=== PATIENT | male | born 1940 | race Caucasian/White ===

== ENCOUNTER 2019-03-28 05:35 | Day surgery (SDC) | payer OTHER ==
[~2019-03-28 05:35] MED LIST: FOSAMAX70 MG PO; MELOXICAM15 MG PO; NORVASC10 MG PO; ZESTRIL20 MG PO
== END 2019-03-28 13:55 | disposition home or self-care (01) ==
LOC: CIR.AMB 05:35
DX: K40.30 Unilateral inguinal hernia, with obstruction, without gangrene, not specified as recurrent (principal)